=== PATIENT | male | born 1960 | race Native Hawaiian/Other Pacific Islander ===

== ENCOUNTER 2016-09-15 09:40 | Outpatient (CLI) | payer OTHER ==
[~2016-09-15 09:40] MED LIST: A-HYDROCORT100 MG IJ; LEVO0.1519 PO; WARF10TA5 PO; WARF7.5T5 PO
== END 2016-09-15 19:47 | disposition home or self-care (01) ==
LOC: RAD 09:40
DX: M79.672 Pain in left foot (principal); M79.671 Pain in right foot

== ENCOUNTER 2016-12-14 15:06 | Outpatient (CLI) | payer OTHER | END 2016-12-14 16:06 | disposition home or self-care (01) | LOC: US 15:06 | DX: M79.605 Pain in left leg (principal) ==

== ENCOUNTER 2017-02-02 13:34 | Observation (INO) | payer OTHER ==
[~2017-02-02] VITALS: Ht 193 cm; Wt 118.0 kg
[2017-02-02 13:30] VITALS: BP 176/107; TEMP 98.1
[2017-02-02 14:18] LABS: PLATELET COUNT 314 K/uL (142-355)
[2017-02-02 14:26] LABS: POTASSIUM 3.9 mmol/L (3.6-5.2); SODIUM 132 mmol/L (136-145)
[2017-02-02 14:37] LABS: PARTIAL THROMBOPLASTIN TIME 29.1 SECONDS (24.5-33.6)
[2017-02-02 15:30] VITALS: BP 114/70
[2017-02-02 16:30] VITALS: BP 132/76
[2017-02-02 19:38] VITALS: BP 133/90; TEMP 97.8; Ht 193 cm; Wt 118.0 kg
[2017-02-02] MEDS ORDERED: TRAM50TA PO (19:58)
[2017-02-02 20:00] VITALS: BP 150/88; TEMP 98.5
[2017-02-02] MEDS ORDERED: PERCOCET1 TA3 PO (20:00)
[2017-02-02] MEDS ORDERED: MOBIC15 MG PO (20:01)
[2017-02-02] MEDS ORDERED: ZANTAC 75 PO (20:02)
[2017-02-03] VITALS: BP 122/73; TEMP 98.8
[2017-02-03 04:00] VITALS: BP 126/72; TEMP 98.5
[2017-02-03 05:24] LABS: PLATELET COUNT 288 K/uL (142-355)
[2017-02-03 05:38] LABS: SODIUM 136 mmol/L (136-145)
[2017-02-03 08:00] VITALS: BP 133/79; TEMP 97.8
[2017-02-03 12:00] VITALS: BP 141/81; TEMP 97.7
== END 2017-02-03 16:30 | disposition home or self-care (01) ==
LOC: ED 13:34 → MED/SURG 15:40
PROVIDERS: Internal Medicine
DX: R06.09 Other forms of dyspnea (principal); R06.02 Shortness of breath; I48.91 Unspecified atrial fibrillation; J44.9 Chronic obstructive pulmonary disease, unspecified; Z86.711 Personal history of pulmonary embolism; E03.8 Other specified hypothyroidism
CPT/HCPCS: 36415; 36600; 80053; 82607; 82805; 83735; 84443; 85027; 85379; 85610; 85730; 93005; 96372; 99220; 99284; G0378; J1650; Q9963

== ENCOUNTER 2017-02-04 12:14 | Outpatient (CLI) | payer OTHER ==
[~2017-02-04 12:14] MED LIST changes: +MOBIC15 MG PO; +PERCOCET1 TA3 PO; +TRAM50TA PO; +ZANTAC 75 PO
== END 2017-02-04 19:49 | disposition home or self-care (01) ==
LOC: LABW 12:14
DX: Z79.01 Long term (current) use of anticoagulants (principal); Z51.81 Encounter for therapeutic drug level monitoring
CPT/HCPCS: 36415; 85610

== ENCOUNTER 2017-02-05 16:20 | Outpatient (CLI) | payer OTHER | END 2017-02-05 19:06 | disposition home or self-care (01) | LOC: LABW 16:20 | DX: Z79.01 Long term (current) use of anticoagulants (principal); Z51.81 Encounter for therapeutic drug level monitoring | CPT/HCPCS: 36415; 85610 ==

== ENCOUNTER 2017-02-06 14:29 | Outpatient (CLI) | payer OTHER | END 2017-02-06 16:00 | disposition home or self-care (01) | LOC: LABW 14:29 | DX: Z79.01 Long term (current) use of anticoagulants (principal); Z51.81 Encounter for therapeutic drug level monitoring | CPT/HCPCS: 36415; 85610 ==

== ENCOUNTER 2017-03-11 08:47 | Inpatient (IN) | payer OTHER ==
[~2017-03-11] VITALS: Ht 193 cm; Wt 122.2 kg
[2017-03-11] VITALS (22 sets, daily range): BP systolic 121–156; BP diastolic 67–101; TEMP 98–98.4; Ht 193 cm; Wt 122.2 kg
--- NOTE | 2017-03-11 08:30 | NUR ---
PT TO ROOM 1111 VIA WC DIRECT ADMIT. PT ORIENTED TO ROOM AND CONTROLS. CALL LIGHT WITHIN REACH AND BED LOW. PT ALERT AND ORIENTED. NAD NOTED AT THIS TIME. 0900- ASSESSMENT DONE AT THIS TIME. RESP NOTIFIED TO ASSESS PT AND BEGIN BREATHING TREATMENTS. 0930- IV STARTED TO L AC WITH 20G ANGIOCATH X 1 ATTEMPT WITH LABS DRAWN. BLOOD CULTURES DONE AT THIS TIME WELL. PT TOLERATED WELL. PT LETHARGIC AT THIS TIME WILL AROUSE AND OPEN EYES UPON VERBAL STIMULI. PT STATES HE IS HOT, NAUSEATED AND " FEELS LIKE HE IS GOING TO PASS OUT" PT VERY PALE, DIAPHORETIC, AND LETHARGIC. PT WOULD AROUSE TO PHYSICAL STIMULI AND WOULD ANSWER QUESTIONS APROPIATELTY WHEN AROUSED. RESP AT BS AND ABG DONE. BS CHECKED AND 112 AT THIS TIME ALBINA ANDREWS AND ARLENE QUEVEDO AT BS AT THIS TIME AND DR OVIEDO NOTIFIED. 02 AT 89% AT THIS TIME, 02 APPLIED PER RESP. 1000- DR OVIEDO NOTIFIED OF PT STATUS PER ALBINA ANDREWS AND NEW ORDERS TO TRANFER PT AT THIS TIME.
--- NOTE | 2017-03-11 10:35 | NUR ---
PT TO CT STABLE VIA STRETCHER ON O2 FOR TRANSPORT.
[2017-03-11 10:51] LABS: PLATELET COUNT 302 K/uL (142-355)
--- NOTE | 2017-03-11 11:12 | NUR ---
DOPPLER IN PROCESS PER RAD DEPT.
[2017-03-11 11:39] LABS: PARTIAL THROMBOPLASTIN TIME 38.8 SECONDS (24.5-33.6)
[2017-03-11 11:44] LABS: POTASSIUM 3.6 mmol/L (3.6-5.2); SODIUM 138 mmol/L (136-145)
--- NOTE | 2017-03-11 14:45 | NUR ---
PT STATES THAT HE IS READY TO EAT. PT PLACED ON NC @4L.
--- NOTE | 2017-03-11 14:53 | NUR ---
TOLERATING NC WELL SATS 93%
--- NOTE | 2017-03-11 16:45 | NUR ---
PT TRANSFERRED INTO [facility].
--- NOTE | 2017-03-11 17:30 | NUR ---
PT STATES THAT HE WANTS TO EAT. PT PLACED ON NC 4L.
--- NOTE | 2017-03-11 17:45 | NUR ---
PT UNABLE TO TOLERATE NC AT THIS TIME. SATS 86%. PT PLACED BACK ONTO VENTI MASK. PT WAS ATTEMPTING TO EAT. HOB UP
[2017-03-12] VITALS (25 sets, daily range): BP systolic 123–159; BP diastolic 36–97; TEMP 97.7–99.8
--- NOTE | 2017-03-12 02:50 | NUR ---
03/12/17 AT 0236UNBLE TO REACH DR. OVIEDO. SPOKE WITH DR. LLANOS IN ER ABOUT PT C/O BEING "SORE" FROM COUGHING AND UNABLE TO SLEEP. ORDER FOR TYLENOL #3 X 2 TABS PO X 1 DOSE NOW. T.O/ R&V DR. LLANOS/MARYBEL BULLOCK RN.
--- NOTE | 2017-03-12 03:44 | NUR ---
03/12/17 AT 0230FSBS IS 109.
[2017-03-12 08:32] LABS: PLATELET COUNT 245 K/uL (142-355)
[2017-03-12 08:33] LABS: POTASSIUM 4.1 mmol/L (3.6-5.2); SODIUM 138 mmol/L (136-145)
--- NOTE | 2017-03-12 12:04 | NUR ---
PT WAS CHANGED EARLER THIS AM FROM 50% VM TO 40% VM AFTER 0800 HHN TX WITH GOOD RESULTS SO AT THIS TIME PT WAS PLACED ON 4LPM NC AFTER 1200 HHN TX AND SPO2 STAYING AT 96% AT THIS TIME.
--- NOTE | 2017-03-12 17:45 | NUR ---
PATIENT DRANK CONTRAST AND READY FOR CT.
[2017-03-13] VITALS (14 sets, daily range): BP systolic 110–148; BP diastolic 60–95; TEMP 97–97.9
--- NOTE | 2017-03-13 05:30 | NUR ---
03/12/17 AT 1940PT TAKEN TO CT VIA WHEELCHAIR.
--- NOTE | 2017-03-13 05:52 | NUR ---
03/12/17 AT 2215PT O2 SAT DROPPED TO 86-87% ON NC AT 4LPM, PT STATES HE WAS USING INCENTIVE SPIROMETER AND NOW HE HURTS IN CHEST OVER LOWER RIBS/UPPER ABD WHICH IS THE SAME AREA THAT HAS BEEN SORE FROM COUGHING. RESP AT BEDSIDE, APPLIED VENTI MASK AT 40%(12LPM), O2 SAT INCREASED TO 92-93% WILL BRING PT SOMETHING PRN FOR HIS PAIN.
--- NOTE | 2017-03-13 06:00 | NUR ---
03/12/17 AT 2030PT ATE ALL OF DINNER TRAY NOW THAT HE HAD HIS CT. WAS NPO FOR HIS CT WITH CONTRAST. TOLERATED WITH NO PROBLEMS.
[2017-03-13 06:10] LABS: PLATELET COUNT 260 K/uL (142-355)
[2017-03-13 06:23] LABS: POTASSIUM 4.1 mmol/L (3.6-5.2); SODIUM 136 mmol/L (136-145)
--- NOTE | 2017-03-13 14:01 | NUR ---
PT TRANSFERED TO ROOM 125.
[2017-03-14] VITALS: BP 140/62; TEMP 97
[2017-03-14 04:00] VITALS: BP 128/71; TEMP 98.8
[2017-03-14 05:22] LABS: PLATELET COUNT 271 K/uL (142-355)
[2017-03-14 05:37] LABS: POTASSIUM 4.2 mmol/L (3.6-5.2); SODIUM 137 mmol/L (136-145)
[2017-03-14 08:00] VITALS: BP 110/63; TEMP 97.9
[2017-03-14 12:00] VITALS: BP 109/60; TEMP 97.8; TEMP 98
--- NOTE | 2017-03-14 13:00 | NUR ---
PT STATES PAIN IN ABD AREA AND RATES IT A 7 ON SCALE 0-10. PAIN MEDICATION GIVEN PRESCRIBED. PT ALSO STATES HAVING TROUBLE BREATHING. AUSCULTATED LUNGS, 02 CHECKED. CALLED RT GARRTE TO APPLY VENTI MASK.
[2017-03-14 16:00] VITALS: BP 123/75; TEMP 98.7
[2017-03-14 20:00] VITALS: BP 133/66; TEMP 97.5
[2017-03-15] VITALS: BP 117/66; TEMP 97.5
[2017-03-15 04:00] VITALS: BP 118/61; TEMP 97.6
[2017-03-15 06:03] LABS: POTASSIUM 4.5 mmol/L (3.6-5.2); SODIUM 141 mmol/L (136-145)
[2017-03-15 06:11] LABS: PLATELET COUNT 254 K/uL (142-355)
[2017-03-15 08:21] VITALS: BP 125/62; TEMP 97.5
[2017-03-15 12:00] VITALS: BP 153/81; TEMP 97.4
[2017-03-15 16:00] VITALS: BP 133/56; TEMP 97.6
[2017-03-15 20:19] VITALS: BP 136/62; TEMP 97.4
[2017-03-16] VITALS: BP 127/74; TEMP 97.8
[2017-03-16 04:00] VITALS: BP 134/69; TEMP 97.8
[2017-03-16 04:57] LABS: PLATELET COUNT 254 K/uL (142-355)
[2017-03-16 05:14] LABS: SODIUM 139 mmol/L (136-145)
[2017-03-16 08:00] VITALS: BP 116/74; TEMP 97.8
--- NOTE | 2017-03-16 12:09 | NUR ---
D/C INSTRUCTIONS GIVEN TO PT AND HE VERBALIZES UNDERSTANDING. PT OUT VIA W/C PER MYSELF WITH NAD.
== END 2017-03-16 12:10 | disposition home or self-care (01) | DRG 190 ==
LOC: MED/SURG 08:47 → ICU 10:15 → MED/SURG 03-13 14:00
PROVIDERS: Emergency Medicine; ADMIT Nurse Practitioner Family
DX: J44.1 Chronic obstructive pulmonary disease with (acute) exacerbation (principal); J18.8 Other pneumonia, unspecified organism; E87.4 Mixed disorder of acid-base balance; J44.0 Chronic obstructive pulmonary disease with (acute) lower respiratory infection; R06.09 Other forms of dyspnea; K21.9 Gastro-esophageal reflux disease without esophagitis; D64.89 Other specified anemias; F32.9 Major depressive disorder, single episode, unspecified; J20.9 Acute bronchitis, unspecified; R09.1 Pleurisy; R09.02 Hypoxemia
CPT/HCPCS: 36415; 36600; 80048; 80053; 80200; 82150; 82550; 82553; 82805; 82962; 83690; 83735; 84443; 84484; 85027; 85379; 85610; 85730; 86318; 87040; 87070; 87205; 93005; 94640; 94664; 94668; 94760; J1644; J1885; J1956; J2930; J3260; Q9963

== ENCOUNTER 2017-06-17 10:18 | Outpatient (CLI) | payer OTHER | END 2017-06-17 19:23 | disposition home or self-care (01) | LOC: LABW 10:18 | DX: Z79.01 Long term (current) use of anticoagulants (principal); Z51.81 Encounter for therapeutic drug level monitoring | CPT/HCPCS: 85610 ==

== ENCOUNTER 2017-11-16 09:57 | Outpatient (CLI) | payer OTHER | END 2017-11-16 18:17 | disposition home or self-care (01) | LOC: MAMMO 09:57 | DX: N64.4 Mastodynia (principal) ==

== ENCOUNTER 2018-04-19 11:28 | Outpatient (CLI) | payer OTHER | END 2018-04-19 19:53 | disposition home or self-care (01) | LOC: RAD 11:28 | DX: Z01.818 Encounter for other preprocedural examination (principal) ==

== ENCOUNTER 2018-11-25 10:35 | Outpatient (CLI) | payer OTHER | END 2018-11-25 23:59 | disposition home or self-care (01) | LOC: RAD 10:35 | DX: Z01.818 Encounter for other preprocedural examination (principal) ==

== ENCOUNTER 2019-04-16 15:51 | Emergency (ER) | payer OTHER ==
[~2019-04-16] VITALS: Ht 193 cm; Wt 129.3 kg
[2019-04-16 16:15] LABS: PLATELET COUNT 229 K/uL (142-355)
[2019-04-16 16:22] LABS: POTASSIUM 3.8 mmol/L (3.6-5.2); SODIUM 135 mmol/L (136-145)
[2019-04-16 16:26] LABS: PARTIAL THROMBOPLASTIN TIME 37.9 SECONDS (24.5-33.6)
[2019-04-16 20:25] VITALS: BP 153/95; TEMP 97.7
== END 2019-04-16 20:25 | disposition home or self-care (01) ==
LOC: ED 15:51
PROVIDERS: Hospitalist
DX: K29.60 Other gastritis without bleeding (principal); K21.9 Gastro-esophageal reflux disease without esophagitis; R07.89 Other chest pain; R06.02 Shortness of breath; I49.8 Other specified cardiac arrhythmias
CPT/HCPCS: 80053; 81000; 82150; 82550; 82553; 83690; 83880; 84484; 85027; 85379; 85610; 85730; 93005; 96374; 96376; 99284; J1885; J2405

== ENCOUNTER 2019-05-24 08:50 | Outpatient (CLI) | payer OTHER | END 2019-05-24 20:04 | disposition home or self-care (01) | LOC: RAD 08:50 | DX: Z01.818 Encounter for other preprocedural examination (principal) ==

== ENCOUNTER 2019-07-01 09:14 | Emergency (ER) | payer OTHER ==
[~2019-07-01] VITALS: Ht 193 cm; Wt 136.1 kg
[2019-07-01 09:27] VITALS: TEMP 98
[2019-07-01] MEDS ORDERED: DILT30TA24 PO (09:44)
[2019-07-01] MEDS ORDERED: UNITH DIRECT200 MCG PO (09:44)
[2019-07-01 10:13] LABS: POTASSIUM 4.3 mmol/L (3.6-5.2)
[2019-07-01 10:15] LABS: PLATELET COUNT 293 K/uL (142-355)
[2019-07-01 10:25] LABS: PARTIAL THROMBOPLASTIN TIME 30.8 SECONDS (24.5-33.6)
[2019-07-01 14:30] VITALS: BP 165/95
== END 2019-07-01 14:30 | disposition short-term general hospital (02) ==
LOC: ED 09:14
PROVIDERS: Emergency Medicine Emergency Medical Services
DX: M79.605 Pain in left leg (principal); Z96.652 Presence of left artificial knee joint; Z79.02 Long term (current) use of antithrombotics/antiplatelets; Z98.890 Other specified postprocedural states
CPT/HCPCS: 36415; 80053; 82550; 84484; 85027; 85379; 85610; 85730; 93005; 96374; 96375; 96376; 99284; J1170; J1650; J2405

== ENCOUNTER 2019-07-01 14:33 | Outpatient (CLI) | payer OTHER ==
[~2019-07-01 14:33] MED LIST changes: +DILT30TA24 PO; +UNITH DIRECT200 MCG PO
== END 2019-07-01 15:03 | disposition short-term general hospital (02) ==
LOC: AMB 14:33
DX: M79.605 Pain in left leg (principal); R22.42 Localized swelling, mass and lump, left lower limb; Z96.652 Presence of left artificial knee joint; R07.9 Chest pain, unspecified
CPT/HCPCS: A0425; A0427

== ENCOUNTER 2019-07-10 12:21 | Outpatient (CLI) | payer OTHER | END 2019-07-10 20:26 | disposition home or self-care (01) | LOC: LAB 12:21 | DX: Z79.01 Long term (current) use of anticoagulants (principal); Z47.1 Aftercare following joint replacement surgery | CPT/HCPCS: 85049 ==

== ENCOUNTER 2019-08-14 09:31 | Outpatient (CLI) | payer OTHER | END 2019-08-14 20:51 | disposition home or self-care (01) | LOC: RAD 09:31 | DX: R06.2 Wheezing (principal) ==

== ENCOUNTER 2021-04-01 17:15 | Emergency (ER) | payer OTHER ==
[~2021-04-01] VITALS: Ht 193 cm; Wt 129.3 kg
[2021-04-01 18:11] LABS: PLATELET COUNT 188 K/uL (142-355)
[2021-04-01 18:17] LABS: POTASSIUM 3.8 mmol/L (3.6-5.2); SODIUM 136 mmol/L (136-145)
[2021-04-01 20:30] VITALS: BP 141/75; TEMP 98.4
== END 2021-04-01 20:30 | disposition home or self-care (01) ==
LOC: ED 17:15
PROVIDERS: Family Medicine
DX: U07.1 COVID-19 (principal); J44.9 Chronic obstructive pulmonary disease, unspecified
CPT/HCPCS: 36415; 80053; 82550; 84484; 85027; 85379; 85610; 87635; 93005; 99284; U0003

== ENCOUNTER 2021-04-06 11:24 | Inpatient (IN) | payer OTHER ==
[~2021-04-06] VITALS: Ht 193 cm; Wt 124.7 kg
[2021-04-06] VITALS (7 sets, daily range): BP systolic 115–144; BP diastolic 45–96; TEMP 98.1–98.3; Ht 193 cm; Wt 124.7 kg
[2021-04-06 12:26] LABS: POTASSIUM 3.9 mmol/L (3.6-5.2); SODIUM 128 mmol/L (136-145)
[2021-04-06 12:29] LABS: PLATELET COUNT 174 K/uL (142-355)
[2021-04-06 12:57] LABS: PARTIAL THROMBOPLASTIN TIME 33.3 SECONDS (24.5-33.6)
--- NOTE | 2021-04-06 14:00 | NUR ---
PT ADMITTED TO RM 1118 VIA WHEELCHAIR, NAD NOTED, PT AMBULATED TO BED WITHOUT ASSISTANCE, NONLABORED BREATHING, PT STATES PAIN TO THORACIC SPINE AT A #6 ON 0-10 PAIN SCALE THAT IS THROBBING, PAIN TO RT HIP RADIATING TO RT THIGH AT A #3 ON 0-10 PAIN SCALE, ORIENTED PT TO RM AND CALL LIGHT, PT VERBALIZED UNDERSTANDING, 20G L AC INTACT, CALL LIGHT WITHIN REACH, WILL CONTINUE TO MONITOR
--- NOTE | 2021-04-06 15:01 | NUR ---
INFORMED DR. SHIMPAN OF PT HAVING COUGHING AND WHEEZING AFTER FLUID ADMINISTRATION IN THE ER, DR. SHIPMAN ORDERS TO CHANGE NS TO RUN AT 50ML/HR, NO FURTHER ORDERS GIVEN
--- NOTE | 2021-04-06 15:45 | NUR ---
IN PT RM TO ADMINISTER MEDICATION, PT SITTING IN HF, NAD NOTED, PT STATES HE WEARS O2 AT HOME AT 1L BUT STATES HE DOES NOT NEED IT RIGHT NOW, I INSTRUCTED PT TO INFORM NURSE IF HE BECOMES SOB OR NEEDS O2, OT VERBALIZED UNDERSTANDING, EDUCATED PT ON USE OF IS, PT STATES HE HAS AN IS THAT HE USES AT HOME, PT DEMONSTRATED USE AND PULLED 2500, NS BEGAN INFUSING AT 50ML/HR WITHOUT DIFFICULTY, NO FURTHER NEEDS AT THIS TIME, CALL LIGHT WITHIN REACH
[2021-04-06] MEDS ORDERED: LEVO0.0218 PO (16:02)
--- NOTE | 2021-04-06 16:10 | NUR ---
DR. SHIPMAN STATES TO PUT OXYGEN ON NC AT 1L TO HELP PT WITH WORK OF BREATHING, NO FURTHER ORDERS GIVEN AT THIS TIME
--- NOTE | 2021-04-06 21:19 | NUR ---
PT AWAKE WATCHING TV WITH NO ACUTED DISTRESS NOTED, 20G IV INTACT TO L ac area WITH FLUID ONGOING, RESP RATE NONLABORED, O2 AT 2LPM VIA NC, TELEMETRY IN USE WITH REGULAR RATE IN 60s, skin warm and dry, radial pulses intact/equal, lungs clear to auscultation, bs+. TALKATIVE WITH SENIOR NET DEVELOPER ARCHITECT. C/O CONSTANT "ACHING" PAIN TO HIS BACK THAT HE RATES A "6" ON SCALE. GAVE NORCO PO PRN FOR PAIN, WILL MONITOR CLOSELY, RAILS UP, BED IN LOW POSITION, CALL LIGHT IN REACH, ENCOURAGED TO CALL NEEDED.
--- NOTE | 2021-04-06 21:50 | NUR ---
STATES PAIN HAS DECREASED SOME TO A "4" SINCE PRN MED GIVEN. WILL MONITOR CLOSELY, RAIL UP, BED IN LOW POSITION, CALL LIGHT IN REAFCH.
[2021-04-07 00:05] VITALS: BP 134/76; TEMP 97.8
--- NOTE | 2021-04-07 00:27 | NUR ---
PT AWAKE WATCHING TV STATES HIS BACK PAIN HAS RETURNED, ACHING PAIN THAT IS A "7" ON SCALE OF 0-10. GAVE MORPNINE 2MG IVP PRN. RESP RATE NONLABORED, O2 IN USE, TELEMETRY IN USE WITH REGULAR RATE 65-55, IV INTACT TO L AC WITH NS INFUSING AT 75ML/HR NO PROBLEMS TO SITE, WILL MONITOR, RAILS UP, BED IN LOW POSITION, CALL LIGHT IN REACH.
--- NOTE | 2021-04-07 00:53 | NUR ---
PT STATES PAIN HAS DECREASED TO A 3 ON SCALE AND IS TOLERABLE, WILL MONITOIR CLOSELY, RAILS UP, BED IN LOW POISITION.
--- NOTE | 2021-04-07 02:05 | NUR ---
RESTING WITH EYES CLOSED, NO S/S OF PAIN OR DISTRESS NOTED, RESP RATE NONLABORED, O2 IN USE, WILL MONITOR, PT REMAINS ON ISOLATION, IV INTACT WITH FLUID ONGOING, RAILS UP, BED IN LOW POSITION.
[2021-04-07 04:00] VITALS: BP 122/78; TEMP 97.8
--- NOTE | 2021-04-07 05:14 | NUR ---
ZOFRAN 4MG SLOW IVP PRN GIVEN FOR NAUSEA NOTED IN NEXT NOTE, WILL MONITOR CLOSELY.
[2021-04-07 05:47] LABS: PLATELET COUNT 175 K/uL (142-355)
--- NOTE | 2021-04-07 05:51 | NUR ---
PT C/O SOME NAUSEA BUT NO VOMITING. GAVE ZOFRAN 4MG SLOW IVP PRN. RESP RATE NONLABORED, O2 AT 2LPM VIA NC WITH SAT OF 95%, 20G IV INTACT TO L AC WITH NS INFUSING AT 75ML/HR, TELEMETRY IN USE WITH RATE IN 50s, NO S/S OF ACUTE DISTRESS NOTED, PT TALKATIVE WITH STAFF AND STATES HE FEELS ALITTLE BETTER THIS MORNING. WILL MONITOR CLOSELY, RAILS UP, BED IN LOW POSITION, CALL LIGHT IN REACH, ENCOURAGED TO CALL NEEDED.
[2021-04-07 05:57] LABS: POTASSIUM 4.4 mmol/L (3.6-5.2)
--- NOTE | 2021-04-07 06:00 | NUR ---
PT STATES THE NAUSEA IS ALMOST GONE, DENIES ANY PROBLEMS OR NEEDS AT THIS TIME, WILL MONITOR C LOSELY.
[2021-04-07 08:00] VITALS: BP 94/52; TEMP 97.4
--- NOTE | 2021-04-07 08:25 | NUR ---
AM ASSESSMENT COMPLETED. PATIENT REPORTED HIS FIRST SYMPTOM WAS ON MARCH 27, 2021, WHICH BEGAN BODY ACHES AND HEADACHE.
--- NOTE | 2021-04-07 09:55 | NUR ---
ADMINISTERED AM MEDICATION AT THIS TIME. PATIENT TOOK WHOLE WITHOUT DIFFICULTY. PROVIDED PATIENT WITH SNACKS AND SPRITE CANS X2. EDUCATED PATIENT ON IMPORTANCE OF AMBULATING TO COUCH AND OUT OF BED. PATIENT V/O UNDERSTANDING.
--- NOTE | 2021-04-07 10:30 | NUR ---
INSTRUCTED PATIENT TO USE INCENTIVE SPIROMETER EVERY THIRTY (30) MINUTES. PATIENT V/O UNDERSTANDING.
[2021-04-07 12:00] VITALS: BP 119/86; TEMP 98.1
--- NOTE | 2021-04-07 14:10 | NUR ---
PATIENT REPORTS HE HAS USED THE INCENTIVE SPIROMETER Q 30 MINUTES NURSE ADVISED AND PATIENT AMBULATED TO COUCH FOR APPROX 15 MINUES WITHOUT DIFFICULTY. PATIENT DENIES ANY NEEDS OR AT THIS TIME.
[2021-04-07 16:00] VITALS: BP 138/83; TEMP 97.8
--- NOTE | 2021-04-07 17:55 | NUR ---
PATIENT ADVISES HE BEGAN HAVING A PRODUCTIVE COUGH.
[2021-04-07 20:00] VITALS: BP 160/84; TEMP 98.4
--- NOTE | 2021-04-07 20:50 | NUR ---
PT. RESTING QUIETLY AT THIS TIME. PM MEDS GIVEN AT THIS TIME. PT. TOLERATED WELL. TREATMENTS GIVEN AT THIS TIME. NS INFUSING AT 50ML/HR. PT. GOT UP TO 500 ON THE INCENTIVE SPIROMETER. NO ACUTE DISTRESS NOTED AT THIS TIME. PT SATTING 94% ON 2LPM NC.
[2021-04-08] VITALS: BP 152/84; TEMP 98.4
[2021-04-08 04:00] VITALS: BP 117/71; TEMP 98.9
[2021-04-08 06:05] LABS: PLATELET COUNT 201 K/uL (142-355)
[2021-04-08 06:31] LABS: POTASSIUM 4.5 mmol/L (3.6-5.2)
[2021-04-08 08:00] VITALS: BP 131/77; TEMP 98
--- NOTE | 2021-04-08 10:45 | NUR ---
REMINDED PATIENT ON IMPORTANCE OF USING INCENTIVE SPIROMETER AND AMBULATING. PT V/O UNDERSTANDING. PROVIDED PATIENT WITH IS AND PT ABLE TO PULL 1500 WITH SMALL AMOUNT OF DIFFICULTY AND COUGHING AFTER EACH PULL. PT DENIES ANY NEEDS OR C/O. PATIENT IS LETHARGIC AND REQUEST NOT TO AMBULATE AT THIS TIME, REQUEST GRANTED BY NURSE AND EDUCATION PROVIDED TO PATIENT.
[2021-04-08 12:00] VITALS: BP 111/68; TEMP 98.1
--- NOTE | 2021-04-08 15:55 | NUR ---
AT PATIENT'S BEDSIDE OBTAINING VITALS, PATIENT IS LETHARGIC. ASSISTED PATIENT TO BEDSIDE CHAIR, PT TOLERATED WELL. PROVIDED PATIENT WITH INCENTIVE SPIROMETER AND EDUCATED HIM ON IMPORTANCE OF USING SAME AND AMBULATING OUT OF BED. PATIENT V/O UNDERSTANDING AND PULLED APPROX 1500 ON IS AT THIS TIME. PT DENIES ANY NEEDS OR C/O AT THIS TIME.
--- NOTE | 2021-04-08 16:35 | NUR ---
UPON ENTERING PATIENT'S ROOM, PATIENT WAS FOUND IN LOW FOWLERS POSITION IN BED REQUESTING QUIETLY IN BED WITH EYES CLOSED. NAD NOTED WITH PATIENT, PT CONTINUES TO RECEIVE OXYGEN VIA NC @ 2LPM.
[2021-04-08 16:38] VITALS: BP 107/62; TEMP 98.6
--- NOTE | 2021-04-08 17:15 | NUR ---
DR. SHIPMAN AT BEDSIDE. RECEIVED NEW VERBAL ORDERS TO D/C MORPHINE, NOTED AND CARRIED OUT.
[2021-04-08 20:00] VITALS: BP 113/52; TEMP 97.7
[2021-04-09] VITALS: BP 111/43; TEMP 99.9
[2021-04-09 04:00] VITALS: BP 110/64; TEMP 98.4
[2021-04-09 05:41] LABS: PLATELET COUNT 195 K/uL (142-355)
[2021-04-09 06:18] LABS: POTASSIUM 4.6 mmol/L (3.6-5.2)
[2021-04-09 08:00] VITALS: BP 123/59; TEMP 97.7
[2021-04-09 12:00] VITALS: BP 105/60; TEMP 98.1
--- NOTE | 2021-04-09 14:23 | NUR ---
PT NOTED TO BE SITTING UP IN THE CHAIR AT BEDSIDE, IVF INFUSING WITHOUT DIFFICULTY. PT IS WEARING O2 AT 3LPM NC. PT DENIES ANY NEEDS OR C/O AT THIS TIME.
[2021-04-09 16:00] VITALS: BP 90/62; TEMP 97.9
[2021-04-09 20:00] VITALS: BP 115/58; TEMP 97.8
--- NOTE | 2021-04-09 20:45 | NUR ---
PT AWAKE SITTING UP RIGHT IN BED WATCHING TV WITH NO ACUTE DISTRESS NOTED,NOTE 20G IV TO L AC LEAKING AT THIS TIME, SITE D/C PT TOLERATED WITH NO PROBLEMS, RESP RATE NONLABORED, O2 AT 2LPM VIA NC, TELEMETRY IN USE WITH BRADYCARDIA NOTED IN HIGH 30s TO 40s, SKIN WARM AND DRY, DENIES ANY PAIN OR NEEDS AT THIS TIME. RAILS UP, BED IN LOW POSITION, CALL LIGHT IN REACH.
[2021-04-10] VITALS: BP 107/60; TEMP 98.5
--- NOTE | 2021-04-10 00:35 | NUR ---
RESTING IN BED WITH EYES CLOSED, NO S/S OF PAIN OR DISTRESS NOTED, RESP RATE NONLABORED, O2 AT 2LPM VIA NC, TELEMETRY IN USE WITH BRADYCARDIA NOTED FROM 38-40s, 20G IV INTACT TO R AC WITH NS INFUSING AT 50ML/HR, WILL MONITOR CLOSELY, RAILS UP, BED IN LOW POSITION, CALL LIGHT IN REACH.
--- NOTE | 2021-04-10 02:00 | NUR ---
PT RESTING QUIETLY IN BED WITH EYES CLOSED LAYING ON L SIDE, NO ACUTE DISTRESS NOTED, RESP RATE NONLABORED, O2 AT 2LPM VIA NC, TELEMETRY IN USE WITH TALIA NOTED STILL, 20G IV INTACT TO R AC WITH NS INFUSING AT 50ML/HR. O2 SAT SHOWING 87% INCREASED O2 TO 3LPM VIA NC O2 SAT NOW 91%, WILL MONITOR CLOSELY.
[2021-04-10 04:00] VITALS: BP 108/60; TEMP 98.4
--- NOTE | 2021-04-10 04:09 | NUR ---
PATIENT RESTING COMFORTABLY WITH NO RESPIRATORY DISTRESS NOTED AT THIS TIME.
[2021-04-10 05:38] LABS: PLATELET COUNT 213 K/uL (142-355)
[2021-04-10 05:57] LABS: POTASSIUM 4.5 mmol/L (3.6-5.2)
--- NOTE | 2021-04-10 05:59 | NUR ---
RESTING WITH EYES CLOSED, NO S/S OF PAIN OR DISTRESS NOTED, IV SITE INTACT WITH FLUID ONGOING, TELEMETRY IN USE, O2 IN USE VIA NC, WILL MONITOR CLOSELY, RAILS UP, BED IN LOW POSITION, CALL LIGHT IN REACH.
[2021-04-10 08:00] VITALS: BP 124/61; TEMP 97.5
[2021-04-10 12:00] VITALS: BP 115/60; TEMP 98
[2021-04-10 16:00] VITALS: BP 121/69; TEMP 97.7
--- NOTE | 2021-04-10 17:43 | NUR ---
DR AVINA IN ROOM MAKING ROUNDS AT THIS TIME. AT BS SPEAKING WITH PT
--- NOTE | 2021-04-10 18:01 | NUR ---
i spoke with pt this am about his discharge plans and needs. he stated that his brother, Neftaly Casiano, lives close by and that he could probably pick him up and look in on him at home on discharge. he states that if he needs home health, he would like [facility] for services.
--- NOTE | 2021-04-10 19:45 | NUR ---
IN PT'S ROOM TO GIVE HIM FRESH ICE IN HIS CUP. PT IS IN HIGH FOWLERS AND WITH O2 ON. BREATHING IS EVEN AND NONLABORED. PATIENT SPOKE WITH PIPE CREW FOREMAN BRIEFLY. WILL CONTINUE TO MONITOR.
[2021-04-10 20:00] VITALS: BP 126/65; TEMP 97.8
--- NOTE | 2021-04-10 20:45 | NUR ---
PT AWAKE SITTING UP IN BED WITH NO ACUTE DISTRESS NOTED, STATES HE IS FEELING BETTER TODAY AND TALKATIVE WITH LIVE AMMUNITION INSPECTOR, SKIN WARM AND DRY, RADIAL PULSES INTACT, RESP RATE NONLABORED, O2 AT 3LPM VIA NC, TELEMETRY IN USE WITH TALIA NOTED 40s-50s,, 20G IV INTACT TO R AC WITH NO PROBLEMS NOTED TO SITE, WILL MONITOR CLOSELY, RAILS UP, BED IN LOW POSITION, CALL LIGHT IN REACH.
[2021-04-11] VITALS: BP 124/69; TEMP 97.6
--- NOTE | 2021-04-11 00:30 | NUR ---
PT RESTING QUIETLY IN BED WITH EYES CLOSED, NO S/S OF PAIN OR DISTRESS NOTED, RESP RATE NONLABORED, O2 AT 3LPM VIA NC, TELEMETRY IN USE WITH BRADYCARDIA NOTED 35-40s, 20G IV INTACT TO R AC WITH NO PROBLEMS NOTED TO SITE, REMAINS ON ISOLATION, WILL MONITOR CLOSELY, RAILS UP, BED IN LOW POSITION, CALL LIGHT IN REACH.
--- NOTE | 2021-04-11 02:15 | NUR ---
RESTING IN POSITION OF COMFORT WITH EYES CLOSED, NO S/S OF PAIN OR DISTRESS NOTED, RESP RATE NONLABORED, O2 IN USE VIA NC, TELEMETRY IN USE, IV LOCK INTACT, WILL MONITOR CLOSELY, RAILS UP, BED IN LOW POSITION.
[2021-04-11 04:00] VITALS: BP 132/77; TEMP 98
[2021-04-11 05:43] LABS: PLATELET COUNT 235 K/uL (142-355)
--- NOTE | 2021-04-11 05:56 | NUR ---
RESTING WITH EYES CLOSED IN BED, NO S/S OF PAIN OR DISTRESS NOTED, RESP RATEN ONLABORED, O2 AT 3LPM VIA NC, TELEMETRY IN USE WITH TALIA NOTED, IV INTACT, WILL MONITOR, RAILS UP, BED IN LOW POSITION.
[2021-04-11 06:10] LABS: POTASSIUM 4.6 mmol/L (3.6-5.2)
--- NOTE | 2021-04-11 07:58 | NUR ---
DECREASED FIO2 TO 28% AT 2LPM NC. SPO2 AT 97%. WILL CONTINUE TO WEAN FIO2 PT TOLERATES.
[2021-04-11 08:00] VITALS: BP 125/67; TEMP 97.7
[2021-04-11 12:00] VITALS: BP 120/69; TEMP 97.6
[2021-04-11 16:00] VITALS: BP 125/68; TEMP 97.9
[2021-04-11 20:00] VITALS: BP 135/70; TEMP 98
--- NOTE | 2021-04-11 21:10 | NUR ---
PM MEDS GIVEN AT THIS TIME. PT. TOLERATED WELL. TELEMETRY INTACT WITH SINUS BRADYCARDIA CONSISTENTLY PRESENT. NO S/S OF ACUTE DISTRESS NOTED WITH PT. IN A LOW FOWLERS POSITION WITH SIDE RAILS UP TIMES TWO WITH BED IN LOWEST POSITION WITH CALL LIGHT WITHIN REACH WITH TELEMETRY, CONTINUOUS PULSE OX AND IV SITE STILL INTACT. PT. IS SATTING BETWEEN 93-97% ON 2L/M NC. WILL CONTINUE TO MONITOR FOR ANY ACUTE CHANGES. INCENTIVE SPIROMETER USAGE GOT UP TO 1500.
[2021-04-12] VITALS (7 sets, daily range): BP systolic 124–167; BP diastolic 73–94; TEMP 97.5–98.8
[2021-04-12 06:28] LABS: POTASSIUM 4.8 mmol/L (3.6-5.2)
[2021-04-12 06:39] LABS: PLATELET COUNT 259 K/uL (142-355)
--- NOTE | 2021-04-12 12:35 | NUR ---
PATIENT'S OXYGEN DECREASED FROM 2LPM VIA NC TO 1LPM VIA NC, PT TOLERATED WELL. SPO2 98%.
--- NOTE | 2021-04-12 13:05 | NUR ---
PATIENT'S SPO2 IS 98% AND RECEIVING OXYGEN VIA NC @1LPM. OXYGEN D/C'D AT THIS TIME.
--- NOTE | 2021-04-12 13:48 | NUR ---
PATIENT'S SPO2 IS 96-98% ON ROOM AIR, PT TOLERATING WELL.
--- NOTE | 2021-04-12 19:50 | NUR ---
RT NOTIFIED SCREEN ROOM OPERATOR OF PT'S SPO2 AT 90% UPON ROUNDS. RT. INTIATED TO INCREASE O2 THERAPY TO 2L/M UNTIL INCREASED SP02 LEVELS. WILL CONTINUE TO MONITOR.
[2021-04-13] VITALS: BP 124/78; TEMP 98.3
--- NOTE | 2021-04-13 03:30 | NUR ---
PT. CURRENTLY ON NO 02 AT THIS TIME. PT.SATTING BETWEEN 95-98% ON RA. NO S/S OF ACUTE DISTRESS NOTED AT THIS TIME. PT. RESTING QUIETLY IN A HIGH-FOWLERS POSITION WITH SIDE RAILS UP TIMES TWO.
[2021-04-13 04:00] VITALS: BP 125/78; TEMP 97.7
[2021-04-13 06:41] LABS: PLATELET COUNT 284 K/uL (142-355)
[2021-04-13 06:45] LABS: POTASSIUM 4.3 mmol/L (3.6-5.2)
[2021-04-13 08:00] VITALS: BP 129/85; TEMP 97.7
[2021-04-13] MEDS ORDERED: FAMOTIDINE20 MG PO (11:31)
[2021-04-13] MEDS ORDERED: ASCO500T18 PO (11:31)
[2021-04-13] MEDS ORDERED: ZINC220C4 PO (11:32)
[2021-04-13] MEDS ORDERED: Z-PAK PO (11:33)
[2021-04-13] MEDS ORDERED: DEXAMETHASON4 MG PO (11:34)
[2021-04-13 12:11] VITALS: BP 121/67; TEMP 97.9
--- NOTE | 2021-04-13 14:05 | NUR ---
REVIEWED DISCHARGE INSTRUCTIONS WITH PATIENT, PATIENT V/O UNDERSTANDING. PATIENT D/C'D FROM FACILITY VIA WHEELCHAIR TO BROTHER'S POV. PATIENT AMBULATED TO POV WITHOUT DIFFICULTY. NAD NOTED WITH PATIENT. PATIENT DENIES ANY PAIN,NEEDS OR C/O AND EXPRESSED HIS APPRECIATION FOR THE CARE HE RECEIVED WHILE AT [facility].
== END 2021-04-13 14:10 | disposition home or self-care (01) | DRG 177 ==
LOC: ED 11:32 → MED/SURG 13:31
PROVIDERS: Hospitalist; ADMIT Internal Medicine; ATTEND Internal Medicine
DX: U07.1 COVID-19 (principal); J96.01 Acute respiratory failure with hypoxia; E87.1 Hypo-osmolality and hyponatremia; D68.2 Hereditary deficiency of other clotting factors; E03.8 Other specified hypothyroidism; J44.9 Chronic obstructive pulmonary disease, unspecified; I48.0 Paroxysmal atrial fibrillation; E78.49 Other hyperlipidemia; Z79.01 Long term (current) use of anticoagulants
CPT/HCPCS: 36415; 80048; 80053; 81000; 82550; 82805; 83880; 84443; 84484; 85007; 85027; 85379; 85610; 85730; 93005; 94760; 96360; 96361; 96375; 96376; 99284; J0456; J1100; J2270; J2405; J3490

== ENCOUNTER 2021-11-05 10:06 | Outpatient (CLI) | payer OTHER ==
[~2021-11-05 10:06] MED LIST changes: +ASCO500T18 PO; +DEXAMETHASON4 MG PO; +FAMOTIDINE20 MG PO; +LEVO0.0218 PO; +Z-PAK PO; +ZINC220C4 PO
== END 2021-11-05 19:21 | disposition home or self-care (01) ==
LOC: RAD 10:06
PROVIDERS: ATTEND Internal Medicine Sleep Medicine
DX: J44.9 Chronic obstructive pulmonary disease, unspecified (principal)

== ENCOUNTER 2021-11-10 09:22 | Outpatient (CLI) | payer OTHER ==
[2021-11-10 09:49] LABS: PLATELET COUNT 217 K/uL (142-355)
[2021-11-10 10:24] LABS: POTASSIUM 3.9 mmol/L (3.6-5.2)
== END 2021-11-10 18:49 | disposition home or self-care (01) ==
LOC: LABW 09:22
PROVIDERS: ATTEND Family Medicine
DX: E07.89 Other specified disorders of thyroid (principal); E78.00 Pure hypercholesterolemia, unspecified; K21.9 Gastro-esophageal reflux disease without esophagitis; J44.9 Chronic obstructive pulmonary disease, unspecified; E55.9 Vitamin D deficiency, unspecified; Z51.81 Encounter for therapeutic drug level monitoring; Z86.718 Personal history of other venous thrombosis and embolism; I11.9 Hypertensive heart disease without heart failure
CPT/HCPCS: 36415; 80053; 80061; 81000; 82306; 83735; 84439; 84443; 84550; 85027; 85610

== ENCOUNTER 2021-11-11 10:01 | Outpatient (CLI) | payer OTHER | END 2021-11-11 19:05 | disposition home or self-care (01) | LOC: LAB 10:01 | PROVIDERS: ATTEND Family Medicine | DX: R10.84 Generalized abdominal pain (principal) | CPT/HCPCS: 83690 ==

== ENCOUNTER 2021-11-13 08:14 | Outpatient (CLI) | payer OTHER | END 2021-11-13 19:07 | disposition home or self-care (01) | LOC: LABW 08:14 | PROVIDERS: ATTEND Family Medicine | DX: E78.1 Pure hyperglyceridemia (principal); R73.9 Hyperglycemia, unspecified; Z79.01 Long term (current) use of anticoagulants; Z51.81 Encounter for therapeutic drug level monitoring; I10 Essential (primary) hypertension | CPT/HCPCS: 36415; 82043; 82570; 83036; 85610 ==

== ENCOUNTER 2021-11-17 09:18 | Outpatient (CLI) | payer OTHER | END 2021-11-17 19:09 | disposition home or self-care (01) | LOC: LABW 09:18 | PROVIDERS: ATTEND Family Medicine | DX: Z79.01 Long term (current) use of anticoagulants (principal); Z51.81 Encounter for therapeutic drug level monitoring | CPT/HCPCS: 36415; 85610 ==

== ENCOUNTER 2021-11-26 07:39 | Outpatient (CLI) | payer OTHER | END 2021-11-26 19:00 | disposition home or self-care (01) | LOC: RESP 07:39 | PROVIDERS: ATTEND Internal Medicine Sleep Medicine | DX: J44.9 Chronic obstructive pulmonary disease, unspecified (principal); Z87.891 Personal history of nicotine dependence; Z79.01 Long term (current) use of anticoagulants; Z51.81 Encounter for therapeutic drug level monitoring | CPT/HCPCS: 36415; 85610 ==

== ENCOUNTER 2021-12-02 08:03 | Outpatient (CLI) | payer OTHER | END 2021-12-02 18:53 | disposition home or self-care (01) | LOC: LABW 08:03 | PROVIDERS: ATTEND Family Medicine | DX: Z79.01 Long term (current) use of anticoagulants (principal); Z51.81 Encounter for therapeutic drug level monitoring | CPT/HCPCS: 36415; 85610 ==

== ENCOUNTER 2022-03-19 13:41 | Outpatient (CLI) | payer OTHER | END 2022-03-19 19:03 | disposition home or self-care (01) | LOC: US 13:41 | PROVIDERS: ATTEND Registered Nurse | DX: R22.41 Localized swelling, mass and lump, right lower limb (principal) ==

== ENCOUNTER 2023-01-01 07:46 | Outpatient (CLI) | payer OTHER | END 2023-01-01 19:13 | disposition home or self-care (01) | LOC: LABW 07:46 | PROVIDERS: ATTEND Physician Assistant | DX: R06.2 Wheezing (principal); Z79.01 Long term (current) use of anticoagulants | CPT/HCPCS: 36415; 85610 ==

== ENCOUNTER 2023-11-02 08:21 | Outpatient (CLI) | payer OTHER | END 2023-11-02 19:21 | disposition home or self-care (01) | LOC: CT 08:21 | PROVIDERS: ATTEND Physician Assistant | DX: R07.89 Other chest pain (principal); R06.02 Shortness of breath | CPT/HCPCS: 36415; 82565; 84520; Q9963 ==